=== PATIENT | male | born 1965 | race American Indian/Alaskan Native ===

== ENCOUNTER 2025-04-17 09:54 | Outpatient (AMB) | payer OTHER, SELFPAY ==
--- NOTE | 2025-04-17 10:09 | MHC.PC.OV ---
Vital Signs 04/17/25 10:10 Height 5 ft 8.9 in Weight 309 lb 8 oz BMI 45.8 BP 130/80 Blood Pressure Location Lt brachial Position Sitting Respiration 20 Pulse 74 Pulse Source Pulse Oximeter Temp 97.3 F Temp Source Temporal Artery Scan Pulse Oximetry (%) 98 Oxygen Delivery Method Room Air Intake Visit Reasons: establish care Intake Note: Patient is a new patient here to establish care for HTN, Cholesterol. Transferring care from [facility]. Medical records have been requested and have received. Requesting referral for Dermatology and Endocrine. Offc Spec Required: No Geography Head: Not Required per policy Accompanied by: Self / Same As Patient Allergies Penicillins Allergy (Intermediate, Verified 04/17/25 10:29) Hives Medication List - Last Reconciled 04/17/25 by BAUDILIO Sánchez amlodipine 10 mg PO DAILY hydrochlorothiazide 25 mg PO DAILY lisinopril 40 mg PO DAILY Tobacco use date assessed: 04/17/25 Dental Screening Dental Screen Date: 04/17/25 Did you have a dental visit in the last 12 months?: Yes Did you have a dental problem in the last 6 months where you did not have access to dental care?: No Was dental information given to patient?: Patient has dentist HPI establish care HPI Details Previous PCP: Chino Cooper, tono [facility] Last visit: over 2 years Last PE: About 4 years ago Specialist: dermatology in the past OBGYN:n/a Past medical history: htn, hld, Medications: Family HX: Father had brain cancer in his sister. Sister uterine cancer age 64, Problem: The patient is a 60-year-old male presenting to establish care. The patient has a long-standing history of hypertension, diagnosed at the age of 20. Hx of HLD, but He has not been on a statin for over three and a half years due to muscle soreness, which he managed with CoQ10, tumeriq, and ashwagandha supplements. The patient reports a history of obstructive sleep apnea diagnosed ten years ago, for which he was prescribed a CPAP machine that he could not tolerate. He experiences frequent awakenings during the night and has recently purchased a device that stimulates the throat muscles to aid breathing during sleep. Reports that he saw this device on [employer]ik[employer], this device did not arrive as yet. The patient has a history of a pneumothorax sustained during a football game in his senior year, which required emergency intervention with a chest tube insertion. He describes the incident as extremely painful, with the lung collapse affecting his heart function. Family history is significant for brain cancer in his father, diagnosed at the age of 62, and uterine cancer in his sister, diagnosed at the age of 64. His father underwent proton radiation therapy and surgery, surviving the condition. The patient has two flesh colored raised area ,left posterior thigh that he is requesting dermatology referral. Patient reports experiencing heart palpitation 2 in stressful situations once in a while He reports that he is also interested in weight management [facility] Medical History (Updated 04/18/25 @ 09:37 by BAUDILIO Sánchez) Morbid obesity HLD (hyperlipidemia) TOM (obstructive sleep apnea) HTN (hypertension) Surgical History History of colonoscopy with polypectomy History of hernia surgery History of lung surgery Family History (Updated 04/18/25 @ 09:16 by BAUDILIO Sánchez) Father Brain cancer Sister FH: uterine cancer Social History Housing: Apartment Alcohol intake: never Patient Tobacco Use Status: Former Tobacco user e-Cigarette/Vaping Use: Never Used Second Hand Smoke Exposure: Yes service: No Current occupational status: employed 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 1. Little interest or pleasure in doing things: not at all 2. Feeling down, depressed, or hopeless: not at all 3. Trouble falling or staying asleep, or sleeping too much: several days 4. Feeling tired or having little energy: not at all 5. Poor appetite or overeating: not at all 6. Feeling bad about yourself - or that you are a failure or have let yourself or your family down: not at all 7. Trouble concentrating on things, such as reading the newspaper or watching television: not at all 8. Moving or speaking so slowly that other people could have noticed. Or the opposite - being so fidgety or restless that you have been moving around a lot more than usual: not at all 9. Thoughts that you would be better off or of hurting yourself in some way: not at all Total score: 1 Depression Screening Interpretation: Positive Depression Screening Done: Yes 14838 - PHQ-9 Billing: Yes Source: Developed by Drs. Robel Morris, Ashley Delatorre, Kelvin Juárez and colleagues, with an educational ambrose from [employer]. Thrive Questionnaire Date Thrive assessed: 04/14/25 I am a: Patient What is your living situation today?: I have a steady place to live Within the past 12 months, did the food you bought not last and you didn't have the money to get more?: Never true Within the past 12 months, did you worry whether your food would run out before you got money to buy more?: Never true Do you have trouble paying for medicines?: No Do you have trouble getting transportation to medical appointments?: No Do you have trouble paying your heating and electricity bill?: No Do you have trouble taking care of your child, family member or friend?: No Do you have trouble with day-to-day activities such as bathing, preparing meals, shopping, managing finances, etc.?: No Are you currently unemployed and looking for a job?: No Are you interested in more education?: Yes Please select the resources that you would like help with: None Currently or been in a relationship where the following occur: No concerns reported THRIVE Score: 0 AUDIT C Alcohol Use Questionnaire (AUDIT-C) 1. How often do you have a drink containing alcohol?: 2-4 times a month 2. How many drinks containing alcohol do you have on a typical day when you are drinking?: 1 or 2 3. How often do you have six or more drinks on one occasion?: Less than monthly Total Score: 3 PETEY-7 AMB Questionnaire PETEY-7 Date PETEY - 7 assessed: 04/17/25 Feeling nervous, anxious, or on edge: 1 = Several days Not being able to stop or control worryin = Several days Worrying too much about different things: 0 = Not at all Trouble relaxin = Several days Being so restless that it is hard to sit still: 0 = Not at all Becoming easily annoyed or irritable: 0 = Not at all Feeling afraid as if something awful might happen: 0 = Not at all Total PETEY-7 score (0-4 normal; 5-9 mild; 10-14 moderate; 15-21 severe): 3 Source: Developed by Drs. Robel Morris, Ashley Delatorre, Kelvin Juárez and colleagues, with an educational ambrose from [employer]. PETEY-7 Assessment Billing PETEY-7 Assessment Tool: PETEY-7 Assessment 86070 Review of Systems Const Reports difficulty sleeping, Denies headache(s), Reports snoring and Reports other (Apneic episodes) Eyes Denies loss of vision ENT Denies vertigo, Denies dizziness, Denies headache(s) and Denies sore throat Card Denies chest pain, Denies leg edema, Denies lightheadedness and Reports other (Heart palpitation during stressful situation) Resp Denies cough, Denies hemoptysis, Reports snoring and Denies wheezing GI Denies abdominal pain, Denies melena, Denies constipation, Denies diarrhea and Denies vomiting Denies dysuria, Denies urinary frequency and Denies urinary urgency Musc Denies arthralgias, Denies joint swelling, Denies numbness and Denies tingling Skin/Breast Reports lesions (flesh colored raised to the back of left thigh) Neuro Denies Abnormal speech present, Denies behavioral changes, Denies vertigo, Denies dizziness, Denies headache(s), Denies loss of vision, Denies memory loss, Denies numbness and Denies tingling Psych Denies anxiety, Denies behavioral changes, Denies depression, Denies memory loss and Denies panic attacks Kei/Lymph Denies easy bleeding and Denies easy bruising Aller/Immun Denies wheezing Physical exam (Primary Care) Vital Signs: Last Vital Signs Temp 97.3 F 04/17/25 10:10 Pulse 74 04/17/25 10:10 Resp 20 04/17/25 10:10 BP 130/80 04/17/25 10:10 Pulse Ox 98 04/17/25 10:10 Oxygen Delivery Method Room Air 04/17/25 10:10 BMI result Body Mass Index 45.8 Tobacco/Smoking Status: Tobacco use Status Tobacco use date assessed 04/17/25 04/17/25 10:15 Patient Tobacco Use Status Former Tobacco user 04/17/25 10:26 e-Cigarette/Vaping Use Never Used 04/17/25 10:25 PHQ-9: PHQ-9 Score PHQ-9: Total score 1 04/17/25 21:37 Depression Screening Interpretation: Positive Thrive Assessment: Date of Thrive Assessment Date Thrive assessed 04/14/25 04/17/25 10:15 Currently or been in a relationship where the following occur: No concerns reported Const General: healthy appearing, no acute distress, alert and awake Nutritional Appearance: well nourished Orientation/consciousness: oriented to person, oriented to place and oriented to time HENMT Ears: TM's normal bilaterally General nose exam: Normal nasal mucous membranes and turbinates present Eyes Conjunctivae: conjunctivae normal Sclerae: sclerae normal Pupils: Equal, round and reactive pupils present Neck Neck: Yes no lymphadenopathy and Yes no JVD Thyroid: Thyroid normal Carotids: no bruits Resp Effort & Inspection: normal respiratory effort and not tachypneic Auscultation: no crackles, no rales, no rhonchi and no wheezes Cardio Rate: regular rate Rhythm: regular rhythm Heart sounds: no murmurs and normal S1 and S2 GI Inspection: Yes obesity Palpation (GI): Soft to palpation, nontender, no hepatomegaly and no splenomegaly Auscultation: normal bowel sounds General: Yes no CVA tenderness Back/Spine/Pelvis Back: no CVA tenderness Skin General skin exam: dry skin Lesions: lesion noted (posterior left thigh 2 flesh colored, raised areas) Neuro General: oriented to person, oriented to place and oriented to time Cranial nerves: Yes Equal, round and reactive pupils present Speech: No Abnormal speech present Gait exam (Neuro): Normal gait present Motor exam (neuro): no tremor noted Extrem Right upper extremity: full ROM Left upper extremity: full ROM Right lower extremity: full ROM; no edema Left lower extremity: full ROM; no edema Psych Mental Status: mental status grossly normal Speech and movement: Normal speech and movement present Affect: normal affect Attitude: cooperative Thought process: Normal thought process present Coding Level of Care Code New Pt Level 4 (64986) Diagnoses Hypertension, unspecified type I10 Hypertension type: unspecified Hyperlipidemia, unspecified hyperlipidemia type E78.5 Hyperlipidemia type: unspecified Morbid obesity E66.01 TOM (obstructive sleep apnea) G47.33 Papules R23.8 Additional Codes PHQ-9 - 19089 - PHQ-9 Billing: Yes ([id number]) PETEY-7 Assessment Billing - PETEY-7 Assessment Tool: PETEY-7 Assessment 91543 ([id number]) Time Spent (min) 39 Assessment & Plan Assessment & Plan (1) HTN (hypertension): Code(s): I10 - Essential (primary) hypertension Category: Medical Qualifiers: Hypertension type: unspecified Qualified Code(s): I10 - Essential (primary) hypertension Plan: Blood pressure 130/80 in office. Systolic goal less than 130 mm Hg Reinforced low-salt diet Continue amlodipine 10 mg, hydrochlorothiazide 25 mg daily, lisinopril 40 mg daily (2) HLD (hyperlipidemia): Code(s): E78.5 - Hyperlipidemia, unspecified Category: Medical Qualifiers: Hyperlipidemia type: unspecified Qualified Code(s): E78.5 - Hyperlipidemia, unspecified Plan: Discussed lifestyle modifications including dietary changes and physical activity The patient reports that he is currently taking Co Q10, tumeriq, and ashwagandha supplements. Ordered labs, we will advise (3) Morbid obesity: Code(s): E66.01 - Morbid (severe) obesity due to excess calories Category: Medical Plan: Encouraged to exercise for at least 30 minutes a day/5 days a week Healthy eating discussed. Encouraged to eat fruits/vegetables, protein-fish/baked chicken, and to avoid salty/fried foods, sweets, caffeine and carbohydrates. Encouraged to increase water intake 6-8 glasses a day The patient is interested in weight management medications. Will refer the patient to weight management. (4) TOM (obstructive sleep apnea): Code(s): G47.33 - Obstructive sleep apnea (adult) (pediatric) Category: Medical Plan: Reports that he was diagnosed with obstructive sleep apnea, but was unable to tolerate the CPAP machine. Currently, he purchased a device online that is said to stimulate the throat muscles to aid breathing doing sleep. He has not receive this device as yet however reports there are plenty good reviews online (5) Papules: Code(s): R23.8 - Other skin changes Category: Medical Plan: The patient has 2 raised flush colored lesions to posterior left thigh that he would like to be examined by Dermatology. Referral placed Plan Labs ordered. The patient to return in 7 weeks for a physical/lab review Orders: Orders Comprehensive Assawoman. Panel Fast 04/17/25 E66. - Morbid (severe) obesity due to excess calories, E78.5 - Hyperlipidemia, unspecified, G47.33 - Obstructive sleep apnea (adult) (pediatric), I10 - Essential (primary) hypertension, Z00.00 - Encounter for general adult medical examination without abnormal findings Lipid Panel 04/17/25 E66.01 - Morbid (severe) obesity due to excess calories, E78.5 - Hyperlipidemia, unspecified, G47.33 - Obstructive sleep apnea (adult) (pediatric), I10 - Essential (primary) hypertension, Z00.00 - Encounter for general adult medical examination without abnormal findings TSH reflex Free T4 04/17/25 E66. - Morbid (severe) obesity due to excess calories, E78.5 - Hyperlipidemia, unspecified, G47.33 - Obstructive sleep apnea (adult) (pediatric), I10 - Essential (primary) hypertension, Z00.00 - Encounter for general adult medical examination without abnormal findings UA CC w/rflx Micro + Cult 04/17/25 E66. - Morbid (severe) obesity due to excess calories, E78.5 - Hyperlipidemia, unspecified, G47.33 - Obstructive sleep apnea (adult) (pediatric), I10 - Essential (primary) hypertension, Z00.00 - Encounter for general adult medical examination without abnormal findings Complete Blood Count Auto Diff 04/17/25 E66. - Morbid (severe) obesity due to excess calories, E78.5 - Hyperlipidemia, unspecified, G47.33 - Obstructive sleep apnea (adult) (pediatric), I10 - Essential (primary) hypertension, Z00.00 - Encounter for general adult medical examination without abnormal findings CRP High Sensitivity 04/17/25 E66. - Morbid (severe) obesity due to excess calories, E78.5 - Hyperlipidemia, unspecified, G47.33 - Obstructive sleep apnea (adult) (pediatric), I10 - Essential (primary) hypertension, Z00.00 - Encounter for general adult medical examination without abnormal findings Erythrocyte Sedimentation Rate 04/17/25 E66.01 - Morbid (severe) obesity due to excess calories, E78.5 - Hyperlipidemia, unspecified, G47.33 - Obstructive sleep apnea (adult) (pediatric), I10 - Essential (primary) hypertension, Z00.00 - Encounter for general adult medical examination without abnormal findings Vitamin D 25-OH Total 04/17/25 E66.01 - Morbid (severe) obesity due to excess calories, E78.5 - Hyperlipidemia, unspecified, G47.33 - Obstructive sleep apnea (adult) (pediatric), I10 - Essential (primary) hypertension, Z00.00 - Encounter for general adult medical examination without abnormal findings Hemoglobin A1c 04/17/25 E66.01 - Morbid (severe) obesity due to excess calories, E78.5 - Hyperlipidemia, unspecified, G47.33 - Obstructive sleep apnea (adult) (pediatric), I10 - Essential (primary) hypertension, Z00.00 - Encounter for general adult medical examination without abnormal findings ECG 12 lead EKG 04/17/25 G47.33 - Obstructive sleep apnea (adult) (pediatric), I10 - Essential (primary) hypertension, Z00.00 - Encounter for general adult medical examination without abnormal findings Insulin Today E66.01 - Morbid (severe) obesity due to excess calories Referrals Dermatology Referral R23.8 - Other skin changes Medical Weight Management Referral E66.01 - Morbid (severe) obesity due to excess calories, G47.33 - Obstructive sleep apnea (adult) (pediatric) Medications: New amlodipine 10 mg PO DAILY 90 tabs 3RF hydrochlorothiazide 25 mg PO DAILY 90 tabs 3RF lisinopril 40 mg PO DAILY 90 tabs 3RF
[2025-04-17 10:10] VITALS: BP 130/80; PULSE 74; RESP 20; TEMP 36.3; O2SAT 98; BMI 45.8
== END 2025-04-17 11:01 | disposition home or self-care (01) ==
LOC: HO.HMCH 09:55
DX: I10 Essential (primary) hypertension (principal); E66.01 Morbid (severe) obesity due to excess calories; Z68.42 Body mass index [BMI] 45.0-49.9, adult; E78.5 Hyperlipidemia, unspecified; G47.33 Obstructive sleep apnea (adult) (pediatric); R23.8 Other skin changes

== ENCOUNTER → 2025-04-17 09:54 | Outpatient (BNVA) | payer OTHER, SELFPAY | DX: Z76.89 Persons encountering health services in other specified circumstances (principal); I10 Essential (primary) hypertension; E78.5 Hyperlipidemia, unspecified; E66.01 Morbid (severe) obesity due to excess calories; Z68.42 Body mass index [BMI] 45.0-49.9, adult; G47.33 Obstructive sleep apnea (adult) (pediatric); R23.8 Other skin changes; Z79.899 Other long term (current) drug therapy; Z13.31 Encounter for screening for depression; Z13.39 Encounter for screening examination for other mental health and behavioral disorders | CPT/HCPCS: 96127 ==

== ENCOUNTER 2025-06-05 09:19 | Outpatient (AMB) | payer OTHER, SELFPAY ==
[2025-06-05 09:22] VITALS: BP 124/78; PULSE 82; RESP 18; TEMP 36.2; O2SAT 96; BMI 44.3
--- NOTE | 2025-06-05 09:22 | MHC.PC.OV ---
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 Accompanied by: Self / Same As Patient Allergies Penicillins Allergy (Intermediate, Verified 06/05/25 09:35) Hives Medication List - Last Reconciled 06/05/25 by BAUDILIO Sánchez amlodipine 10 mg PO DAILY [daily vitamin PO] hydrochlorothiazide 25 mg PO DAILY lisinopril 40 mg PO DAILY [magnesium PO] [tumeric PO] [vitamin d PO] Tobacco use date assessed: 06/05/25 Dental Screening Dental Screen Date: 06/05/25 Did you have a dental visit in the last 12 months?: Yes Did you have a dental problem in the last 6 months where you did not have access to dental care?: No Was dental information given to patient?: Patient has dentist HPI 7 week follow up HPI Details Dentist: up to date Eye: up to date Snellen: Right: Left: Corrected vision: yes, cheaters STI screening: Colonoscopy: due for a colonoscopy Pap Smer: PHQ-9: Flu: do not COVID: x2 Tdap: due Diet: Exercise: The patient is a 60-year-old male presenting for annual physical . He is here for hypertension management and preventative care. The patient has been on lisinopril for hypertension for 20 years, with occasional dry cough noted, which may be related to the medication. The cough occurs approximately once every two weeks and is not considered frequent enough to warrant a change in medication. The patient has a history of colon polyps, with the last colonoscopy performed 12 years ago, revealing two non-cancerous polyps. There is no family history of colon cancer, but the patient acknowledges the need for a follow-up colonoscopy. 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 The patient reports sleep disturbances, previously attributed to stress-related elevated cortisol levels. The patient has recently found relief by consuming milk before bedtime, resulting in improved sleep quality. 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 1. Little interest or pleasure in doing things: not at all 2. Feeling down, depressed, or hopeless: not at all 3. Trouble falling or staying asleep, or sleeping too much: several days 4. Feeling tired or having little energy: not at all 5. Poor appetite or overeating: not at all 6. Feeling bad about yourself - or that you are a failure or have let yourself or your family down: not at all 7. Trouble concentrating on things, such as reading the newspaper or watching television: not at all 8. Moving or speaking so slowly that other people could have noticed. Or the opposite - being so fidgety or restless that you have been moving around a lot more than usual: not at all 9. Thoughts that you would be better off or of hurting yourself in some way: not at all Total score: 1 Depression Screening Interpretation: Positive Depression Screening Done: Yes Source: Developed by Drs. Robel Morris, Ashley Delatorre, Kelvin Juárez and colleagues, with an educational ambrose from [employer]. Thrive Questionnaire Date Thrive assessed: 06/05/25 I am a: Patient What is your living situation today?: I have a steady place to live Within the past 12 months, did the food you bought not last and you didn't have the money to get more?: Never true Within the past 12 months, did you worry whether your food would run out before you got money to buy more?: Never true Do you have trouble paying for medicines?: No Do you have trouble getting transportation to medical appointments?: No Do you have trouble paying your heating and electricity bill?: No Do you have trouble taking care of your child, family member or friend?: No Do you have trouble with day-to-day activities such as bathing, preparing meals, shopping, managing finances, etc.?: No Are you currently unemployed and looking for a job?: No Are you interested in more education?: Yes Please select the resources that you would like help with: None Currently or been in a relationship where the following occur: No concerns reported THRIVE Score: 0 AUDIT C Alcohol Use Questionnaire (AUDIT-C) 1. How often do you have a drink containing alcohol?: 2-4 times a month 2. How many drinks containing alcohol do you have on a typical day when you are drinking?: 1 or 2 3. How often do you have six or more drinks on one occasion?: Less than monthly Total Score: 3 PETEY-7 AMB Questionnaire PETEY-7 Date PETEY - 7 assessed: 06/05/25 Feeling nervous, anxious, or on edge: 1 = Several days Not being able to stop or control worryin = Several days Worrying too much about different things: 0 = Not at all Trouble relaxin = Several days Being so restless that it is hard to sit still: 0 = Not at all Becoming easily annoyed or irritable: 0 = Not at all Feeling afraid as if something awful might happen: 0 = Not at all Total PETEY-7 score (0-4 normal; 5-9 mild; 10-14 moderate; 15-21 severe): 3 Source: Developed by Drs. Robel Morris, Ashley Delatorre, Kelvin Juárez and colleagues, with an educational ambrose from [employer]. Review of Systems Const Denies headache(s) Eyes Denies loss of vision ENT Denies vertigo, Denies dizziness, Denies headache(s) and Denies sore throat Card Denies chest pain, Denies leg edema, Denies lightheadedness and Reports dyspnea on exertion Resp Denies cough, Denies hemoptysis, Reports dyspnea on exertion and Denies wheezing GI Denies abdominal pain, Denies melena, Denies constipation, Denies diarrhea and Denies vomiting Denies dysuria, Denies urinary frequency and Denies urinary urgency Musc Denies arthralgias, Denies joint swelling, Denies numbness and Denies tingling Neuro Denies Abnormal speech present, Denies behavioral changes, Denies vertigo, Denies dizziness, Denies headache(s), Denies loss of vision, Denies memory loss, Denies numbness and Denies tingling Psych Denies anxiety, Denies behavioral changes, Denies depression, Denies memory loss and Denies panic attacks Kei/Lymph Denies easy bleeding and Denies easy bruising Aller/Immun Denies wheezing Physical exam (Primary Care) Vital Signs: Last Vital Signs Temp 97.1 F 06/05/25 09:22 Pulse 82 06/05/25 09:22 Resp 18 06/05/25 09:22 BP 124/78 06/05/25 09:22 Pulse Ox 96 06/05/25 09:22 Oxygen Delivery Method Room Air 06/05/25 09:22 BMI result Body Mass Index 44.3 Tobacco/Smoking Status: Tobacco use Status Tobacco use date assessed 06/05/25 06/05/25 09:33 Patient Tobacco Use Status Former Tobacco user 06/05/25 09:33 e-Cigarette/Vaping Use Never Used 06/05/25 09:33 PHQ-9: PHQ-9 Score PHQ-9: Total score 1 06/05/25 10:01 Depression Screening Interpretation: Positive Thrive Assessment: Date of Thrive Assessment Date Thrive assessed 06/05/25 06/05/25 09:33 Currently or been in a relationship where the following occur: No concerns reported Const General: healthy appearing, no acute distress, alert and awake Nutritional Appearance: well nourished Orientation/consciousness: oriented to person, oriented to place and oriented to time HENMT Ears: TM's normal bilaterally General nose exam: Normal nasal mucous membranes and turbinates present Eyes Conjunctivae: conjunctivae normal Sclerae: sclerae normal Pupils: Equal, round and reactive pupils present Neck Neck: Yes no lymphadenopathy and Yes no JVD Thyroid: Thyroid normal Carotids: no bruits Resp Effort & Inspection: normal respiratory effort and not tachypneic Auscultation: no crackles, no rales, no rhonchi and no wheezes Cardio Rate: regular rate Rhythm: regular rhythm Heart sounds: no murmurs and normal S1 and S2 GI Palpation (GI): Soft to palpation, nontender, no hepatomegaly and no splenomegaly Auscultation: normal bowel sounds Skin General skin exam: no rashes or lesions noted and dry skin Neuro General: oriented to person, oriented to place and oriented to time Cranial nerves: Yes CN's II-XII intact bilaterally and Yes Equal, round and reactive pupils present Speech: No Abnormal speech present Gait exam (Neuro): Normal gait present Motor exam (neuro): no tremor noted Extrem Right upper extremity: full ROM Left upper extremity: full ROM Right lower extremity: full ROM; no edema Left lower extremity: full ROM; no edema Psych Mental Status: mental status grossly normal Speech and movement: Normal speech and movement present Affect: normal affect Attitude: cooperative Thought process: Normal thought process present Immunizations Boostrix Tdap 2.5 Lf unit-8 mcg-5 Lf/0.5 mL intramuscular syringe Performing Provider: BAUDILIO Sánchez [facility] Administered by: Nahomy Hassan RN on 06/05/25 10:00 Dose Route Admin Location Dispensed Lot Number Expiration Date [facility] Pedicurist 0.5 mL IM Right Deltoid 0.5 mL [id number] 08/05/27 13029-654-26 [employer] Total Dispensed Waste 0.5 mL 0 % VIS Given Date VIS Provided VIS Publication Date 06/05/25 Single Vaccine 21 Eligibility Eligibility Date Funding Source Not [facility] Eligible 06/05/25 Private Coding Level of Care Code Est Pt Prev Care 40-64y(40462) Diagnoses Annual physical exam Z00.00 Papules R23.8 TOM (obstructive sleep apnea) G47.33 Morbid obesity E66.01 Hyperlipidemia, unspecified hyperlipidemia type E78.5 Hyperlipidemia type: unspecified Hypertension, unspecified type I10 Hypertension type: unspecified Colon cancer screening Z12.11 SOB (shortness of breath) on exertion R06.02 Time Spent (min) 39 Assessment & Plan Assessment & Plan (1) Annual physical exam: Code(s): Z00.00 - Encounter for general adult medical examination without abnormal findings Category: Medical Plan: Preventive guidelines reviewed with the patient. Patient is due for colonoscopy referral placed. Tdap was given in office today. The patient was reminded to complete preordered labs for further evaluation. (2) Papules: Code(s): R23.8 - Other skin changes Category: Medical Plan: The patient has 2 raised flush colored lesions to posterior left thigh that he would like to be examined by Dermatology. Referral was placed previously. (3) TOM (obstructive sleep apnea): Code(s): G47.33 - Obstructive sleep apnea (adult) (pediatric) Category: Medical Plan: Reports that he was diagnosed with obstructive sleep apnea, but was unable to tolerate the CPAP machine. Currently, he purchased a device online that is said to stimulate the throat muscles to aid breathing doing sleep. He has not receive this device as yet however reports there are plenty good reviews online (4) Morbid obesity: Code(s): E66.01 - Morbid (severe) obesity due to excess calories Category: Medical Plan: Encouraged to exercise for at least 30 minutes a day/5 days a week Healthy eating discussed. Encouraged to eat fruits/vegetables, protein-fish/baked chicken, and to avoid salty/fried foods, sweets, caffeine and carbohydrates. Encouraged to increase water intake 6-8 glasses a day The patient is interested in weight management medications. Patient was referred weight management. (5) HLD (hyperlipidemia): Code(s): E78.5 - Hyperlipidemia, unspecified Category: Medical Qualifiers: Hyperlipidemia type: unspecified Qualified Code(s): E78.5 - Hyperlipidemia, unspecified Plan: Discussed lifestyle modifications including dietary changes and physical activity The patient reports that he is currently taking Co Q10, tumeriq, and ashwagandha supplements. Ordered labs, we will advise when resulted (6) HTN (hypertension): Code(s): I10 - Essential (primary) hypertension Category: Medical Qualifiers: Hypertension type: unspecified Qualified Code(s): I10 - Essential (primary) hypertension Plan: Blood pressure 124/78 in office. Systolic goal less than 130 mm Hg Reinforced low-salt diet Continue amlodipine 10 mg, hydrochlorothiazide 25 mg daily, lisinopril 40 mg daily (7) Colon cancer screening: Code(s): Z12.11 - Encounter for screening for malignant neoplasm of colon Category: Medical Plan: Patient was referred to GI further evaluation (8) SOB (shortness of breath) on exertion: Code(s): R06.02 - Shortness of breath Category: Medical Plan: labs ordered. The patient also would like a cardiology workout. Plan Plan Patient was informed and verbally consented to the use of an ambient scribe for clinic note documentation during this visit. 1. Hypertension The patient will continue with lisinopril for hypertension management, as the dry cough is infrequent and not bothersome enough to warrant a change in medication. A cardiology referral is planned for a comprehensive cardiac workup, including stress testing and echocardiogram, to evaluate the patient's cardiovascular health. 2. Dental Caries The patient has been advised to seek dental treatment for caries, with options including root canal or extraction of affected teeth. 3. Colon Polyps A referral for a follow-up colonoscopy has been made to screen for potential recurrence of polyps, given the patient's history of non-cancerous polyps. 4. Preventative Care The patient received a tetanus vaccination during the visit. A colonoscopy referral was made for routine screening purposes. Orders: Orders TDaP Immunization Today Z23 - Encounter for immunization Referrals Gastroenterology Referral Z12.11 - Encounter for screening for malignant neoplasm of colon Cardiology Referral E66.01 - Morbid (severe) obesity due to excess calories, G47.33 - Obstructive sleep apnea (adult) (pediatric), I10 - Essential (primary) hypertension, R06.02 - Shortness of breath
== END 2025-06-05 10:03 | disposition home or self-care (01) ==
LOC: HO.HMCH 09:19
DX: Z00.00 Encounter for general adult medical examination without abnormal findings (principal); R23.8 Other skin changes; Z68.41 Body mass index [BMI] 40.0-44.9, adult; E66.01 Morbid (severe) obesity due to excess calories; G47.33 Obstructive sleep apnea (adult) (pediatric); E78.5 Hyperlipidemia, unspecified; I10 Essential (primary) hypertension; Z12.11 Encounter for screening for malignant neoplasm of colon; R06.02 Shortness of breath; Z23 Encounter for immunization

== ENCOUNTER → 2025-06-05 09:19 | Outpatient (BNVA) | payer OTHER, SELFPAY | DX: Z00.00 Encounter for general adult medical examination without abnormal findings (principal); I10 Essential (primary) hypertension; R23.8 Other skin changes; G47.33 Obstructive sleep apnea (adult) (pediatric); E66.01 Morbid (severe) obesity due to excess calories; E78.5 Hyperlipidemia, unspecified; R06.02 Shortness of breath; Z23 Encounter for immunization; Z68.41 Body mass index [BMI] 40.0-44.9, adult | CPT/HCPCS: 90471; 90715; 96127 ==

== ENCOUNTER 2025-08-24 14:32 | Outpatient (REF) | payer OTHER, SELFPAY ==
[2025-08-24 15:08] LABS: MANUAL DIFF FLAG NO
[2025-08-24 15:48] LABS: Hematocrit 44.5 % (42.0-52.0); Hemoglobin 15.0 g/dl (14.0-18.0); Imm Gran Abs Auto 0.03 X10*3/uL (0.00-0.03); Imm Gran Pct Auto 0.4 % (0.0-0.4); Lymphocytes Absolute Auto 1.9 X10*3/uL (1.2-4.9); Mean Corpuscular HGB Conc 33.7 g/dl (31.0-36.0); Mean Corpuscular Hemoglobin 30.9 pg (27.0-33.0); Mean Corpuscular Volume 91.8 fL (80.0-98.0); NRBC Abs Auto 0.000 X10*3/uL (0.0-0.012); NRBC Pct Auto 0.0 /100WBC (0.0-0.2); Platelet Count 372 X10*3/uL (160-400); Red Blood Count 4.85 X10*6/uL (4.60-5.80); White Blood Count 7.1 X10*3/uL (4.8-10.8)
[2025-08-24 15:53] LABS: Appearance Urine Clear; Glucose Urine UA Negative (Negative); PH 7.0 (5.0-9.0); Specific Gravity - Urine 1.025 (1.005-1.025)
[2025-08-24 17:24] LABS: Alanine Aminotransferase 105 U/L (0-40); Albumin Level 4.5 g/dL (3.5-5.0); Alkaline Phosphatase 56 U/L (39-117); Anion Gap 11 (12-20); Aspartate Amino Transferase 51 U/L (5-37); Blood Urea Nitrogen 14 mg/dL (9-16); Calcium 9.2 mg/dL (8.4-10.2); Carbon Dioxide 29 mmol/L (22-29); Chloride 103 mmol/L (96-108); Cholesterol 191 mg/dL (<200); Estimated Glomerular Filt Rate > 60; HDL Cholesterol 38 mg/dL (>40); Potassium 3.6 mmol/L (3.3-5.1); Sodium 139 mmol/L (135-145); Total Protein 7.0 g/dL (6.5-8.0); Triglycerides 111 mg/dL (<150)
== END 2025-08-24 14:33 | disposition home or self-care (01) ==
LOC: HO.LAB 14:32
DX: Z00.00 Encounter for general adult medical examination without abnormal findings (principal); E66.01 Morbid (severe) obesity due to excess calories; G47.33 Obstructive sleep apnea (adult) (pediatric); E78.5 Hyperlipidemia, unspecified; I10 Essential (primary) hypertension; Z13.1 Encounter for screening for diabetes mellitus; Z13.21 Encounter for screening for nutritional disorder
CPT/HCPCS: 36415; 80053; 80061; 81003; 82306; 83036; 83525; 84443; 85025; 85652; 86141

== ENCOUNTER 2025-09-04 08:52 | Outpatient (AMB) | payer OTHER, SELFPAY ==
[2025-09-04 08:54] VITALS: BP 130/88; PULSE 66; RESP 18; O2SAT 95; BMI 47.1
--- NOTE | 2025-09-04 08:54 | MHC.PC.OV ---
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 Accompanied by: Self / Same As Patient Allergies Penicillins Allergy (Intermediate, Verified 09/04/25 12:56) Hives Medication List - Last Reconciled 09/04/25 by BAUDILIO Sánchez amlodipine 10 mg PO DAILY [daily vitamin PO] hydrochlorothiazide 25 mg PO DAILY lisinopril 40 mg PO DAILY [magnesium PO] [tumeric PO] [vitamin d PO] Tobacco use date assessed: 09/04/25 Dental Screening Dental Screen Date: 09/04/25 Did you have a dental visit in the last 12 months?: Yes Did you have a dental problem in the last 6 months where you did not have access to dental care?: No Was dental information given to patient?: Patient has dentist HPI htn/hld/tom HPI Details route cannal October 06 colonoscopy in [facility] September 23 stress HPI Comments History of Present Illness Details The patient is a 60 year old male presenting for Chronic conditions follow-up to review lab results and for health maintenance. He reports recent tooth sensitivity, which led to the diagnosis of a cavity requiring two root canals; one was completed on Sunday and the second is scheduled for October 06. He is also scheduled for a screening colonoscopy on November 24 and a stress test on September 23. Review of recent lab work revealed elevated liver enzymes. The patient reports a history of daily alcohol consumption (beer and wine) but states he has been abstinent for approximately the past eight weeks. He also reported Tylenol use, noting the combination with alcohol is not good. He reports having elevated liver enzymes in the past in his previous PCP worked him up for elevated cortisol levels, including an external abdominal ultrasound 4 to 7 years ago, which ruled out adrenal gland cancer and and he was also worked up for Parkinson's disease. His lipid panel shows elevated LDL cholesterol and low HDL cholesterol (30 mg/dL). He reports a family history of high cholesterol. He has a history of statin intolerance and currently takes CoQ10 and sometimes takes omega-3 supplements. His labs also indicate a low vitamin D level, for which he takes a supplement of unknown dosage. His HbA1c is 5.4%, and his CBC and kidney function are normal. Past medical history from chart review includes anemia, a history of colon polyps approximately 10 years ago, hypertension, stomach ulcers, umbilical hernia, and hemorrhoids. He notes that life stressors following a divorce led to a period of inactivity and increased alcohol use, but he has recently resumed swimming at the [facility] and is making better lifestyle choices. Health Maintenance Patient is scheduled for a screening colonoscopy on November 24 and a cardiac stress test on September 23. He is also addressing his dental health with recent and upcoming root canals. He is encouraged to continue his positive lifestyle changes, including increased physical activity and abstinence from alcohol. Social History - Alcohol Use: Patient reports a history of daily beer and wine consumption but has been abstinent for the past 8 weeks. - Exercise: Patient was previously inactive but has recently started swimming again at the [facility]. - Stressors: Patient reports that a past divorce was a significant stressor that led to a period of inactivity and increased alcohol use. - Marital and Family Status: Patient is . He has three children and reports feeling good that they are doing well. 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 Results - CBC: Normal. - Chemistry panel: Kidney function is good. Liver enzymes (ALT/AST) are slightly elevated. - Hemoglobin A1c: 5.4%, indicating the patient is not diabetic. - Insulin: Appears good. - Lipid Panel: LDL cholesterol is elevated (target <100). HDL is low at 30 mg/dL (target >40). - Vitamin D: Level is on the lower side. 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 Depression Screening Interpretation: Positive Depression Screening Done: Yes Source: Developed by Drs. Robel Morris, Ashley Delatorre, Kelvin Juárez and colleagues, with an educational ambrose from [employer]. Thrive Questionnaire Date Thrive assessed: 09/04/25 I am a: Patient What is your living situation today?: I have a steady place to live Within the past 12 months, did the food you bought not last and you didn't have the money to get more?: Never true Within the past 12 months, did you worry whether your food would run out before you got money to buy more?: Never true Do you have trouble paying for medicines?: No Do you have trouble getting transportation to medical appointments?: No Do you have trouble paying your heating and electricity bill?: No Do you have trouble taking care of your child, family member or friend?: No Do you have trouble with day-to-day activities such as bathing, preparing meals, shopping, managing finances, etc.?: No Are you currently unemployed and looking for a job?: No Are you interested in more education?: Yes Please select the resources that you would like help with: None Currently or been in a relationship where the following occur: No concerns reported THRIVE Score: 0 PETEY-7 AMB Questionnaire PETEY-7 Date PETEY - 7 assessed: 09/04/25 Source: Developed by Drs. Robel Morris, Ashley Delatorre, Kelvin Juárez and colleagues, with an educational ambrose from [employer]. Review of Systems Narrative Review of Systems - General/Constitutional: Reports sleeping much better and feeling great. Reports recent improved energy levels. Denies jaundice. - HEENT: Reports recent tooth sensitivity. - Gastrointestinal: Denies stomach pain. Const Denies headache(s) Eyes Denies loss of vision ENT Denies vertigo, Denies dizziness, Denies headache(s) and Denies sore throat Card Denies chest pain, Denies leg edema, Denies lightheadedness and Reports dyspnea on exertion Resp Denies cough, Denies hemoptysis, Reports dyspnea on exertion and Denies wheezing GI Denies abdominal pain, Denies melena, Denies constipation, Denies diarrhea and Denies vomiting Denies dysuria, Denies urinary frequency and Denies urinary urgency Musc Denies arthralgias, Denies joint swelling, Denies numbness and Denies tingling Neuro Denies Abnormal speech present, Denies behavioral changes, Denies vertigo, Denies dizziness, Denies headache(s), Denies loss of vision, Denies memory loss, Denies numbness and Denies tingling Psych Denies anxiety, Denies behavioral changes, Denies depression, Denies memory loss and Denies panic attacks Kei/Lymph Denies easy bleeding and Denies easy bruising Aller/Immun Denies wheezing Physical exam (Primary Care) Vital Signs: Last Vital Signs Pulse 66 09/04/25 08:54 Resp 18 09/04/25 08:54 BP 130/88 09/04/25 08:54 Pulse Ox 95 09/04/25 08:54 Oxygen Delivery Method Room Air 09/04/25 08:54 BMI result Body Mass Index 47.1 Tobacco/Smoking Status: Tobacco use Status Tobacco use date assessed 09/04/25 09/04/25 09:01 Patient Tobacco Use Status Former Tobacco user 09/04/25 09:01 e-Cigarette/Vaping Use Never Used 09/04/25 09:01 Depression Screening Interpretation: Positive Thrive Assessment: Date of Thrive Assessment Date Thrive assessed 09/04/25 09/04/25 09:01 Currently or been in a relationship where the following occur: No concerns reported Narrative Physical Exam - General: Patient is alert and oriented, in no acute distress. - Cardiovascular/Pulmonary: Auscultation of heart and lungs performed. Const General: healthy appearing, no acute distress, alert and awake Nutritional Appearance: well nourished Orientation/consciousness: oriented to person, oriented to place and oriented to time HENMT Ears: TM's normal bilaterally General nose exam: Normal nasal mucous membranes and turbinates present Eyes Conjunctivae: conjunctivae normal Sclerae: sclerae normal Pupils: Equal, round and reactive pupils present Neck Neck: Yes no lymphadenopathy and Yes no JVD Thyroid: Thyroid normal Carotids: no bruits Resp Effort & Inspection: normal respiratory effort and not tachypneic Auscultation: no crackles, no rales, no rhonchi and no wheezes Cardio Rate: regular rate Rhythm: regular rhythm Heart sounds: no murmurs and normal S1 and S2 GI Palpation (GI): Soft to palpation, nontender, no hepatomegaly and no splenomegaly Auscultation: normal bowel sounds Skin General skin exam: no rashes or lesions noted and dry skin Neuro General: oriented to person, oriented to place and oriented to time Cranial nerves: Yes CN's II-XII intact bilaterally and Yes Equal, round and reactive pupils present Speech: No Abnormal speech present Gait exam (Neuro): Normal gait present Motor exam (neuro): no tremor noted Extrem Right upper extremity: full ROM Left upper extremity: full ROM Right lower extremity: full ROM; no edema Left lower extremity: full ROM; no edema Psych Mental Status: mental status grossly normal Speech and movement: Normal speech and movement present Affect: normal affect Attitude: cooperative Thought process: Normal thought process present Results Reviewed Results Reviewed: Laboratory Tests 08/24/25 08/24/25 14:52 15:04 WBC 7.1 RBC 4.85 Hgb 15.0 Hct 44.5 MCV 91.8 MCH 30.9 MCHC 33.7 RDW 12.5 Plt Count 372 Sodium 139 Potassium 3.6 Chloride 103 Carbon Dioxide 29 Anion Gap 11 L BUN 14 Creatinine 0.95 Estimated GFR > 60 Fasting Glucose 88 Estimat Average Glucose 108 Hemoglobin A1c % 5.4 Insulin Level 8 Calcium 9.2 Total Bilirubin 0.9 AST 51 H ALT 105 H Alkaline Phosphatase 56 C-React Prot High Sens 2.0 Total Protein 7.0 Albumin 4.5 Triglycerides 111 Cholesterol 191 LDL Cholesterol, Calc 131 H HDL Cholesterol 38 L 25-OH Vitamin D Total 24.0 L TSH 1.36 Urine Color Dark Yellow Urine Appearance Clear Urine pH 7.0 Ur Specific [place] 1.025 Urine Protein Negative Urine Glucose (UA) Negative Urine Ketones Trace Urine Blood Negative Urine Nitrite Negative Ur Leukocyte Esterase Negative Coding Level of Care Code Est Pt Level 4 (29383) Diagnoses Papules R23.8 TOM (obstructive sleep apnea) G47.33 Morbid obesity E66.01 Hyperlipidemia, unspecified hyperlipidemia type E78.5 Hyperlipidemia type: unspecified Hypertension, unspecified type I10 Hypertension type: unspecified SOB (shortness of breath) on exertion R06.02 Elevated liver enzymes R74.8 Vitamin D deficiency E55.9 Time Spent (min) 39 Assessment & Plan Assessment & Plan (1) Papules: Code(s): R23.8 - Other skin changes Category: Medical Plan: The patient has 2 raised flush colored lesions to posterior left thigh that he would like to be examined by Dermatology. Referral was placed previously. (2) TOM (obstructive sleep apnea): Code(s): G47.33 - Obstructive sleep apnea (adult) (pediatric) Category: Medical Plan: Reports that he was diagnosed with obstructive sleep apnea, but was unable to tolerate the CPAP machine. Currently, he purchased a device online that is said to stimulate the throat muscles to aid breathing doing sleep. Reports that this device is still in a box, however; his sleeping/resting has been significantly better. (3) Morbid obesity: Code(s): E66.01 - Morbid (severe) obesity due to excess calories Category: Medical Plan: The patient has since gained 3 lbs. Encouraged to exercise for at least 30 minutes a day/5 days a week Healthy eating discussed. Encouraged to eat fruits/vegetables, protein-fish/baked chicken, and to avoid salty/fried foods, sweets, caffeine and carbohydrates. Encouraged to increase water intake 6-8 glasses a day The patient is interested in weight management medications. Patient was referred weight management. (4) HLD (hyperlipidemia): Code(s): E78.5 - Hyperlipidemia, unspecified Category: Medical Qualifiers: Hyperlipidemia type: unspecified Qualified Code(s): E78.5 - Hyperlipidemia, unspecified Plan: The patient has elevated LDL cholesterol and a low HDL of 30 mg/dL. He has a history of statin intolerance. The plan is to add omega-3 supplements to his current CoQ10 regimen to help raise his HDL. Other medications will be deferred until the liver evaluation is complete. A fasting lipid panel will be repeated in three months. Discussed lifestyle modifications including dietary changes and physical activity (5) HTN (hypertension): Code(s): I10 - Essential (primary) hypertension Category: Medical Qualifiers: Hypertension type: unspecified Qualified Code(s): I10 - Essential (primary) hypertension Plan: Blood pressure 133/88 in office. Systolic goal less than 130 mm Hg Reinforced low-salt diet Continue amlodipine 10 mg, hydrochlorothiazide 25 mg daily, lisinopril 40 mg daily (6) SOB (shortness of breath) on exertion: Code(s): R06.02 - Shortness of breath Category: Medical Plan: The patient asked to be referred to Cardiology, referral was placed and he is waiting to be seen. His labs were also evaluated. (7) Elevated liver enzymes: Code(s): R74.8 - Abnormal levels of other serum enzymes Category: Medical Plan: Recent labs show elevated liver enzymes, with ALT at 105 and AST at 51. The etiology is unclear but may be related to past heavy alcohol use, Tylenol use, or nonalcoholic fatty liver disease. To further evaluate, an abdominal ultrasound and a liver-specific blood workup will be ordered. The patient was advised to complete the liver workup as soon as possible and was educated on the signs of severe liver damage, such as jaundice, and instructed to go to the emergency room if these symptoms appear. (8) Vitamin D deficiency: Code(s): E55.9 - Vitamin D deficiency, unspecified Category: Medical Plan: The patient's vitamin D level is on the lower side. He is currently taking a 25 mcg vitamin D3 supplement. He was instructed to increase his daily dose to 50 mcg by taking two of his current pills until they are finished, and then purchasing 50 mcg tablets. Plan Patient Instructions - Please go for blood work to further check your liver function as soon as you can. - Our office will schedule an ultrasound of your abdomen, and they will call you to set up the appointment. - If you notice any yellowing of your skin or the whites of your eyes, please go to the nearest emergency room. - Increase your Vitamin D3 supplement to 50 mcg each day. You can take two of your 25 mcg pills until they are finished. - Add an omega-3 supplement to your daily routine to help with your cholesterol. - In 3 months, you will need to have fasting blood work done to recheck your cholesterol. - Continue with your plans for your colonoscopy and stress test as scheduled. - Be cautious with dietary supplements, as they are not regulated by the FDA, and there is no guarantee they contain what they claim. Orders: Orders Ferritin Today R74.8 - Abnormal levels of other serum enzymes IRON PROFILE Today R74.8 - Abnormal levels of other serum enzymes Comprehensive [place]. Panel Fast 3 Months E66.01 - Morbid (severe) obesity due to excess calories, E78.5 - Hyperlipidemia, unspecified, G47.33 - Obstructive sleep apnea (adult) (pediatric), I10 - Essential (primary) hypertension, R06.02 - Shortness of breath, R74.8 - Abnormal levels of other serum enzymes TSH reflex Free T4 3 Months E66.01 - Morbid (severe) obesity due to excess calories, E78.5 - Hyperlipidemia, unspecified, G47.33 - Obstructive sleep apnea (adult) (pediatric), I10 - Essential (primary) hypertension, R06.02 - Shortness of breath, R74.8 - Abnormal levels of other serum enzymes Vitamin D 25-OH Total 3 Months E66.01 - Morbid (severe) obesity due to excess calories, E78.5 - Hyperlipidemia, unspecified, G47.33 - Obstructive sleep apnea (adult) (pediatric), I10 - Essential (primary) hypertension, R06.02 - Shortness of breath, R74.8 - Abnormal levels of other serum enzymes Hepatitis A,B,C Profile Today R74.8 - Abnormal levels of other serum enzymes US abdomen complete Today R74.8 - Abnormal levels of other serum enzymes Lipid Panel 3 Months E66.01 - Morbid (severe) obesity due to excess calories, E78.5 - Hyperlipidemia, unspecified, G47.33 - Obstructive sleep apnea (adult) (pediatric), I10 - Essential (primary) hypertension, R06.02 - Shortness of breath, R74.8 - Abnormal levels of other serum enzymes Complete Blood Count Auto Diff 3 Months E66.01 - Morbid (severe) obesity due to excess calories, E78.5 - Hyperlipidemia, unspecified, G47.33 - Obstructive sleep apnea (adult) (pediatric), I10 - Essential (primary) hypertension, R06.02 - Shortness of breath, R74.8 - Abnormal levels of other serum enzymes Hemoglobin A1c 3 Months E66.01 - Morbid (severe) obesity due to excess calories, E78.5 - Hyperlipidemia, unspecified, G47.33 - Obstructive sleep apnea (adult) (pediatric), I10 - Essential (primary) hypertension, R06.02 - Shortness of breath, R74.8 - Abnormal levels of other serum enzymes UA CC w/rflx Micro + Cult 3 Months E66.01 - Morbid (severe) obesity due to excess calories, E78.5 - Hyperlipidemia, unspecified, G47.33 - Obstructive sleep apnea (adult) (pediatric), I10 - Essential (primary) hypertension, R06.02 - Shortness of breath, R74.8 - Abnormal levels of other serum enzymes
== END 2025-09-04 09:58 | disposition home or self-care (01) ==
LOC: HO.HMCH 08:53
DX: R23.8 Other skin changes (principal); G47.33 Obstructive sleep apnea (adult) (pediatric); E66.01 Morbid (severe) obesity due to excess calories; Z68.42 Body mass index [BMI] 45.0-49.9, adult; E78.5 Hyperlipidemia, unspecified; I10 Essential (primary) hypertension; R06.02 Shortness of breath; R74.8 Abnormal levels of other serum enzymes; E55.9 Vitamin D deficiency, unspecified

== ENCOUNTER 2025-09-22 09:06 | Outpatient (AMB) | payer OTHER, SELFPAY ==
--- NOTE | 2025-09-22 09:19 | MHC.OFFVIS ---
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 He reports experiencing occasional palpitations, which he describes as a fluttering sensation, similar to being on a roller coaster. He has not had a physical examination in about three and a half years. The patient denies any history of heart attacks, chest pain, pressure, or heaviness. He also denies any true shortness of breath but does note a cough when transitioning from warm to cold air. He recently had a productive cough for five days which has since resolved. Past medical history is significant for an 8-day hospitalization at [facility] for COVID-19 infection many years ago, during which he did experience shortness of breath. Twelve years ago, he suffered a heat stroke which was initially suspected to be a heart attack. He has a history of a punctured lung resulting from a college football injury. The patient was diagnosed with sleep apnea but does not use any treatment, stating he was unable to tolerate the device. He reports waking up approximately six times per night. He is not diabetic. Recent blood work revealed a fatty liver with enzyme levels around 80. Family history is notable for longevity, with both parents living to age 92. His father had a history of brain cancer in 1962 treated successfully with proton radiation. His mother was healthy until developing multiple sclerosis, later passing away after a fall resulted in bilateral femur fractures. 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 He has expressed interest in GLP-1 agonists for weight management. 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 [place] Cognitive needs: No Hearing needs: No Vision needs: Yes (Reading Glasses) Review of Systems Const Denies chills, Denies fatigue, Denies fever(s), Denies frequent falls, Denies weakness, Denies weight gain and Denies weight loss ENT Denies dizziness Card Denies chest pain, Denies leg edema, Denies lightheadedness, Denies palpitations, Denies dyspnea, Denies dyspnea on exertion and Denies orthopnea Resp Denies cough, Denies dyspnea and Denies dyspnea on exertion GI Denies bloating and Denies change in bowel habits Musc Denies muscle weakness, Denies numbness and Denies tingling Neuro Denies dizziness, Denies frequent falls, Denies numbness, Denies tingling and Denies weakness Endo Denies fatigue and Denies palpitations Physical Exam Vital Signs: Last Vital Signs Pulse 90 09/22/25 09:21 BP 130/80 09/22/25 09:21 BMI result Body Mass Index 47.2 Const General: comfortable and no acute distress Orientation/consciousness: patient oriented x3 HEENT Other: Unremarkable Head: Yes normal to inspection Neck Neck: Yes normal visual inspection Chest Chest palpation & inspection: normal inspection of the chest Resp Auscultation: clear to auscultation bilaterally Cardio Palpation: normal PMI Heart sounds: S1 normal heart sound present, S2 normal heart sound present, no gallops, no murmurs and no rubs GI Palpation (GI): Soft to palpation Back/Spine/Pelvis Other: unremarkable Skin General skin exam: no rashes or lesions noted Neuro General: patient oriented x3 Extrem General: Yes normal to inspection Psych Mental Status: mental status grossly normal Office Procedures EKG Details: EKG with underlying sinus rhythm at 90/Min; no ischemic changes; [place] [id number], Complete Assessment & Plan Assessment & Plan (1) Morbid obesity: Code(s): E66.01 - Morbid (severe) obesity due to excess calories Category: Medical (2) HTN (hypertension): Code(s): I10 - Essential (primary) hypertension Category: Medical Qualifiers: Hypertension type: unspecified Qualified Code(s): I10 - Essential (primary) hypertension (3) TOM (obstructive sleep apnea): Code(s): G47.33 - Obstructive sleep apnea (adult) (pediatric) Category: Medical Plan Assessment and Plan 1. Palpitations and preventative cardiac screening The patient presents with occasional palpitations but denies other overt cardiac symptoms such as chest pain or shortness of breath. The evaluation is primarily for screening and reassurance. An echocardiogram and a cardiac CT scan will be ordered to complete the workup. The CT scan is pending insurance approval. 2. Sleep Apnea The patient has a known history of sleep apnea but is non-adherent to therapy. He acknowledges the need for a new sleep study to re-evaluate his condition, as his previous test was several years ago. 3. Weight management The patient expressed interest in GLP-1 agonists (e.g., Ozempic) for weight loss. This was noted as a good potential option for him. 4. Fatty liver The patient has a history of fatty liver with elevated enzymes. This was noted, but no changes to management were made at this visit. Discussion Notes I discussed with the patient that his presentation is primarily for a cardiac check-up, prompted by occasional palpitations. I explained that while he does not have overt or concerning cardiac symptoms, I would order further testing for a comprehensive evaluation. The plan includes an echocardiogram and a cardiac CT scan. I informed him that the CT scan is subject to insurance approval, which can sometimes be difficult without more significant symptoms. The patient denied any allergies to IV contrast dye or any history of kidney problems, confirming he is a candidate for the CT scan. We briefly touched upon his interest in GLP-1 agonists for weight loss, and I agreed it could be a beneficial option for him. Alternative would be a calcium scoring CT. Patient was informed and verbally consented to the use of an ambient scribe for clinic note documentation during this visit. Patient Instructions - We will order an echocardiogram (an ultrasound of your heart) and a CT scan of your heart to check its health. - Note that the CT scan requires approval from your insurance company, and our office will work on obtaining this. Orders: Orders CA echo transthoracic complete Today E66.01 - Morbid (severe) obesity due to excess calories, G47.33 - Obstructive sleep apnea (adult) (pediatric), R06.02 - Shortness of breath CT Cardiac Coronary Angio Today I25.10 - Atherosclerotic heart disease of [place] coronary artery without angina pectoris Basic Metabolic Panel Today I50.9 - Heart failure, unspecified Coding Level of Care Code New Pt Level 4 (01087) Add On Problem Visit Only Diagnoses Morbid obesity E66.01 Hypertension, unspecified type I10 Hypertension type: unspecified TOM (obstructive sleep apnea) G47.33 CPT Codes EKG - CPT: 80706-[id number], Complete ([id number])
[2025-09-22 09:21] VITALS: BP 130/80; PULSE 90; BMI 47.2
== END 2025-09-22 09:49 | disposition home or self-care (01) ==
LOC: HO.HCS 09:06
PROVIDERS: Visit Provider Internal Medicine
DX: E66.01 Morbid (severe) obesity due to excess calories (principal); I10 Essential (primary) hypertension; G47.33 Obstructive sleep apnea (adult) (pediatric)
CPT/HCPCS: 93010; 99204

== ENCOUNTER → 2025-09-22 09:06 | Outpatient (BNVA) | payer OTHER, SELFPAY | PROVIDERS: Visit Provider Internal Medicine | DX: R00.2 Palpitations (principal); I10 Essential (primary) hypertension; G47.33 Obstructive sleep apnea (adult) (pediatric); E66.01 Morbid (severe) obesity due to excess calories; K76.0 Fatty (change of) liver, not elsewhere classified; Z68.42 Body mass index [BMI] 45.0-49.9, adult; Z79.899 Other long term (current) drug therapy | CPT/HCPCS: 93005 ==